=== PATIENT | female | born 1990 | race African-American/Black ===

== ENCOUNTER 2017-01-31 22:02 | Emergency (ER) | payer MEDICAID ==
[~2017-01-31] VITALS: Ht 157.5 cm; Wt 67.6 kg
[2017-01-31 22:07] VITALS: BP 113/56; PULSE 74; RESP 18; TEMP 98.1; O2SAT 98
--- NOTE | 2017-01-31 22:16 | NUR ---
Patient to ER bed 4 to gown for evaluation. Side rails up. Report given to SUZETTE Chin.
[2017-01-31 22:26] LABS: BILIRUBIN,URINE NEGATIVE (NEGATIVE); BLOOD, URINE NEGATIVE (NEGATIVE); COLOR,URINE YELLOW (YELLOW); GLUCOSE,URINE NEGATIVE (NEGATIVE); KETONES,URINE NEGATIVE (NEGATIVE); LEUKOCYTE ESTERASE ,URINE 1+ (NEGATIVE); NITRITE, URINE NEGATIVE (NEGATIVE); PROTEIN URINE NEGATIVE (NEGATIVE); UROBILINOGEN,URINE 0.2 (0.2-1.0)
--- NOTE | 2017-01-31 22:30 | NUR ---
Patient reports having sore throat x 4 days. Denies any fever. Patient also reports having greenish yellow vaginal discharge x 4 days with pelvic pain. Denies any pain at this time but when pain occurs reports that it is a 8/10 stabbing pain. Abdomen is soft and round. Lungs are clear. No other complaints/injuries per patient or as noted.
--- NOTE | 2017-01-31 22:32 | NUR ---
Moved pt to bed 7 for pelvic exam
[2017-01-31 22:40] LABS: CLARITY/URINE HAZY (CLEAR)
[2017-01-31 22:41] LABS: RBC,URINE 0-3 /HPF (0-3)
[2017-01-31 22:43] LABS: BACTERIA,URINE MODERATE /HPF (None Seen)
[2017-01-31 22:45] LABS: MUCUS,URINE None Seen /LPF (None Seen)
--- NOTE | 2017-01-31 23:01 | NUR ---
FAB Martinez at bedside
[2017-01-31] MEDS ORDERED: AZITHROMYCIN 250 MG TABLET PO ONE (23:15)
[2017-01-31] MEDS ORDERED: cefTRIAXone 250 MG VIAL IM ONE (23:15)
[2017-01-31 23:56] VITALS: BP 113/56; PULSE 74; RESP 18; TEMP 98.1; O2SAT 98
--- NOTE | 2017-01-31 23:56 | NUR ---
Patient given written and verbal discharge instructions and verbalizes understanding. ER MD discussed with patient the results and treatment provided. Patient in stable condition. ID arm band removed. Rx of Macrobid and Flagyl given. Patient educated on pain management and to follow up with PMD in 2 days. Pain Scale 0/10 Opportunity for questions provided and answered.
[2017-02-04 16:44] LABS: CHLAMYDIA TRACHOMATIS NAA Negative (Negative); NEISSERIA GONORRHOEAE NAA Negative (Negative)
== END 2017-01-31 23:56 | disposition home or self-care (01) ==
LOC: SED 22:02
DX: N39.0 Urinary tract infection, site not specified (principal); F17.210 Nicotine dependence, cigarettes, uncomplicated; Z90.89 Acquired absence of other organs
CPT/HCPCS: 36415; 81000; 81025; 87086; 87210; 87491; 87591; 96372; 99284; J0696; Q0144